=== PATIENT | female | born 1965 | race American Indian/Alaskan Native ===

== ENCOUNTER 2018-02-23 06:01 | Observation (INO) | payer OTHER ==
--- NOTE | 2018-02-17 09:57 | Anesthesia Consultation ---
Anesthesia Consult and Med Hx Date of service: 02/17/18 - Airway Anesthetic Teeth Evaluation: Good (multiple missing molars) ROM Head & Neck: Adequate Mental/Hyoid Distance: Adequate Mallampati Class: Class II Intubation Access Assessment: Probably Good - Pulmonary Exam CTA: Yes - Cardiac Exam Cardiac Exam: RRR - Pre-Operative Health Status ASA Pre-Surgery Classification: ASA3 Proposed Anesthetic Plan: General - Cardiovascular System Hx Hypertension: Yes (HL) - Central Nervous System Hx Psychiatric Problems: No - Gastrointestinal Hx Gastroesophageal Reflux Disease: Yes - Endocrine Hx Non-Insulin Dependent Diabetes: Yes (borderline) - Hematic Hx Anemia: Yes - Other Systems Hx Alcohol Use: Yes (occas) Hx Cancer: No Hx Obesity: Yes - Additional Comments Anesthesia Medical History Comments: glaucoma, OA b/l knees
[2018-02-17 10:07] LABS: Hematocrit 40.9 % (30.3-42.9); Hemoglobin 13.1 gm/dl (10.1-14.3); Mean Corpuscular HGB Conc 32 % (30-34); Mean Corpuscular Volume 76 fl (79-97); Platelet Count 270 K/mm3 (140-440); Red Blood Count 5.39 M/mm3 (3.65-5.03); Red Cell Distribution Width 19.4 % (13.2-15.2)
[2018-02-17 10:09] LABS: Mean Corpuscular Hemoglobin 24 pg (28-32)
[2018-02-17 10:20] LABS: BUN/Creatinine Ratio 22; Blood Urea Nitrogen 11 mg/dL (7-17); Calcium 8.9 mg/dL (8.4-10.2); Hemolysis Index 23
[2018-02-17 10:46] LABS: Anisocytosis 1+; Hypochromasia 1+; Ovalocytes Few; Poikilocytosis 1+; Total Cells Counted 100
[2018-02-17 10:47] LABS: Platelet Estimate Cons
--- NOTE | 2018-02-22 22:38 | History and Physical Report ---
History of Present Illness Date of examination: 02/11/18 Chief complaint: Menorrhagia, Dysmenorrhea and uterine fibroids History of present illness: This is a 52 year-old female who presents with menorrhagia and dysmenorrhea dating back to 2013. Symtpms have been unreposonsive to previous conservative surgical interventiopn. She now desires to proceed with hysterectomy with removal of both her fallopian tubes and ovaries Past History : 1 Premature Births: 1 Living Children: 0 # 1 Delivery type: Comments: iufd [employer] History Operations: Cholecystectomy Breast Biopsy: right benign 2001 Myomectomy( vaginally d/t prolapse thru cervix) excision of colon polyps EGD Abnormal PAP: negative Infection History HIV Risk Eval: no Hx of STD: HSV Active Medications (reviewed today): IBUPROFEN 800 MG ORAL TABLET (IBUPROFEN) 1 po TID (PRN) OXYCODONE-ACETAMINOPHEN 5-325 MG ORAL TABLET (OXYCODONE-ACETAMINOPHEN) 1-2po q6h as needed DORZOLAMIDE HCL 2 % OPHTHALMIC SOLUTION (DORZOLAMIDE HCL) LUMIGAN 0.01 % OPHTHALMIC SOLUTION (BIMATOPROST) PRAVASTATIN SODIUM TABLET (PRAVASTATIN SODIUM TABS) SUCRALFATE TABLET (SUCRALFATE TABS) IRON SUPPLEMENT TABLET (FERROUS SULFATE TABS) T1PO QD FLONASE 50 MCG/ACT NASAL SUSPENSION (FLUTICASONE PROPIONATE) 2 sprays, each nostril x1 qd OMEPRAZOLE TABLET DELAYED RELEASE (OMEPRAZOLE TBEC) BISOPROLOL-HYDROCHLOROTHIAZIDE 10-6.25 MG ORAL TABLET (BISOPROLOL- HYDROCHLOROTHIAZIDE) METFORMIN HCL 500 MG ORAL TABLET (METFORMIN HCL) Current Allergies (reviewed today): * SHELLFISH (Critical) Past Medical History: Reviewed history from 03/30/2017 and no changes required: h/o Anemia Diabetes, Type 2 G E R D Hypertension colon polyps gastric polyp glaucoma chronic sinusitis Hyperlipidemia Past Surgical History: Reviewed history from 08/07/2017 and no changes required: Cholecystectomy Breast Biopsy: right benign 2001 Myomectomy( vaginally d/t prolapse thru cervix) excision of colon polyps EGD Family History Summary: Reviewed history Last on 08/07/2017 and no changes required:02/22/2018 Other family member - Has No Family History of Colon Cancer - Entered On: 2013 Other family member - Has No Family History of Ovarvian Cancer - Entered On: Other family member - Has No Family History of DVT/PE on OCP - Entered On: 05/24 Other family member - Has No Family History of Biliary Tract Cancer - Entered On : 11/20/2016 Other family member - Has No Family History of Brain Cancer - Entered On: 2016 Other family member - Has No Family History of Kidney/Urinary Tract Cancer - Entered On: 11/20/2016 Other family member - Has No Family History of Pancreatic Cancer - Entered On: Other family member - Has No Family History of Stomach Cancer - Entered On: 11/20 Other family member - Has No Family History of Small Bowel Cancer - Entered On: 11/20/2016 Other family member - Has No Family History of Uterine Cancer - Entered On: 11/20 Mother (biol.) - Has Family History Breast Cancer - diagnosed age 58, age 81 - Entered On: 11/04/2017 Sister (full) - Has Family History of Melanoma - Entered On: 11/25/2017 Social History: Reviewed history from 08/07/2017 and no changes required: Patient is single Smoking History: Patient has never smoked. Risk Factors: Smoked Tobacco Use: Never smoker Smokeless Tobacco Use: Never Passive smoke exposure: no Drug use: no HIV high-risk behavior: no Alcohol use: yes Drinks per day: social Exercise: no Seatbelt use: 100 % Mammogram History: Date of Last Mammogram: 08/27/2016 PAP Smear History: Date of Last PAP Smear: 10/28/2017 Previous Tobacco Use: Signed On - 01/11/2018 Smoked Tobacco Use: Never smoker Smokeless Tobacco Use: Never Passive smoke exposure: no Drug use: no HIV high-risk behavior: no Previous Alcohol Use: Signed On - 01/11/2018 Alcohol use: yes Type: occ Exercise: no Seatbelt use: 100 % Colonoscopy History: Date of Last Colonoscopy: 11/06/2016 Mammogram History: Date of Last Mammogram: 08/27/2016 PAP Smear History: Date of Last PAP Smear: 10/28/2017 Review of Systems General Denies fever, chills, sweats, anorexia, fatigue, weakness, malaise, weight loss and sleep disorder. Complains of menorrhagia and abnormal vaginal bleeding. Denies vaginal discharge, incontinence, dysuria, hematuria, urinary frequency, amenorrhea, pelvic pain, genital sores, decreased libido, painful periods, painful sex, urinary urgency, hot flashes, vaginal dryness, vaginal itching and vaginal odor. CV Denies chest pains, palpitations, syncope, dyspnea on exertion, orthopnea, PND and peripheral edema. Resp Denies cough, dyspnea at rest, excessive sputum, hemoptysis, wheezing and pleurisy. GI Denies nausea, vomiting, diarrhea, constipation, change in bowel habits, abdominal pain, melena, hematochezia, jaundice, gas/bloating, indigestion/ heartburn, dysphagia and odynophagia. Endo Denies cold intolerance, heat intolerance, polydipsia, polyphagia, polyuria and unusual weight change. Breast Denies left breast lump, right breast lump, nipple discharge, bloody discharge from nipple, breast pain, abnormal mammogram and breast enlargement. MS Denies back pain, joint pain, joint swelling, muscle cramps, muscle weakness, stiffness, arthritis, sciatica, restless legs, leg pain at night and leg pain with exertion. Derm Denies rash, itching, dryness and suspicious lesions. Neuro Denies paralysis, paresthesias, headache, seizures, tremors, vertigo, transient blindness, frequent falls, frequent headaches and difficulty walking. Psych Denies depression, anxiety, irritability and mood swings. Eyes Denies blurring, diplopia, irritation, discharge, vision loss, eye pain and photophobia. ENT Denies earache, ear discharge, tinnitus, decreased hearing, nasal congestion, nosebleeds, sore throat and hoarseness. Allergy Denies urticaria, allergic rash, hay fever and recurrent infections. Heme Denies abnormal bruising, bleeding and enlarged lymph nodes. Physical Exam Appearance: well developed, well nourished, no acute distress Other Exams Breast exam: no masses or nipple discharge Lungs: no rales, rhonchi, or wheezes Abdomen: soft, non-tender, no masses, obese Skin: no ulcers, xanthomas Extremities: normal alignment, no joint enlargement, crepitus, masses or tenderness; normal tone and strength Genitourinary Exam Vulva: normal, no lesions or discharge Urethral meatus: normal size and location, no lesions or discharge Urethra: no discharge Bladder: no cystocele Vagina: normal appearance, yellow discharge, lesions. No evidence of cystocele or rectocele. errythema Cervix: normal appearance, no lesions, no discharge Uterus: unable to palpate Adnexa: unable to palpate due to obesity Impression & Recommendations: Problem # 1: Excessive and frequent menstruation with regular cycle (ICD-626.2 ) (UKC40-H14.0) Diagnosis explained to patient . Questions answered. Discussed with patient various medical and surgical therapies common for treatment: Hormonal/medical therapy,endometrial ablation or hysterectomy. She desires to proceed with hysterectomy with removal of both fallopian tubes and ovaries Consent reviewed and signed . Possible laparoscopy or laparotomy explained to patient. The risks and alternatives for this surgery were reviewed with the patient. She was informed of possible bleeding, infection, injury to bowel, bladder, ureters or other adjacent organs. She was informed she will not be able to get after her uterus has been removed. She's aware se will immediately be placed into menopause after her ovaries have been removed. Discussed use of hormone therapy. Risks reviewed with patient but not limited to :CVA, AR, DVT, PE, Breast cancer, liver problems. Patient counseled that she should use the lowest effective dose of HRT/ERT for the shortest period of time Other options for offered, encouraged to exercise, increase water intake, decrease Na+ and carbohydrate intake. The patient was instructed/informed the following: The normal length of hospital stay for this procedure. Nothing to eat or drink after midnight the evening prior to surgery. Clear liquids the day before surgery. Fleets enema the day prior to surgery. Pre-op instruction sheets given. Wound care instructions given. Infection precautions reviewed, patient to call for any signs or symptoms of infection. The usual discomforts associated with this procedure were detailed. Proper use of pain medicines was reviewed. Patient was given ample opportunity to have all her questions answered before signing informed consent. Problem # 2: Fibroids of uterus, Submucosal (ICD-218.0) (YNC21-L59.0) Her updated medication list for this problem includes: Ibuprofen 800 Mg Oral Tablet (Ibuprofen) ..... 1 po tid (prn) Oxycodone-acetaminophen 5-325 Mg Oral Tablet (Oxycodone-acetaminophen) ..... 1-2po q6h as needed Orders: Ofc Vst Est 16050 (CPT-15460) Medications Added to Medication List This Visit: 1) Ibuprofen 800 Mg Oral Tablet (Ibuprofen) .... 1 po tid (prn) 2) Oxycodone-acetaminophen 5-325 Mg Oral Tablet (Oxycodone-acetaminophen) .... 1-2po q6h as needed 3) Dorzolamide Hcl 2 % Ophthalmic Solution (Dorzolamide hcl) 4) Lumigan 0.01 % Ophthalmic Solution (Bimatoprost) Prescriptions: IBUPROFEN 800 MG ORAL TABLET (IBUPROFEN) 1 po TID (PRN) #30 x 0 Entered and Authorized by: Jojo Brown MD Method used: Print then Give to Patient RxID: [id number] OXYCODONE-ACETAMINOPHEN 5-325 MG ORAL TABLET (OXYCODONE-ACETAMINOPHEN) 1-2po q6h as needed #30 Tablet x 0 Entered and Authorized by: Jojo Brown MD Method used: Print then Give to Patient RxID: [id number] Medications and Allergies Allergies Allergy/AdvReac Type Severity Reaction Status Date / Time shellfish derived Allergy Angioedema Verified 02/16/18 12:02 Home Medications Medication Instructions Recorded Confirmed Last Taken Type Bisoprolol/Hydrochlorothiazide 1 each PO DAILY 02/17/18 02/17/18 Unknown History [Bisoprolol-Hctz 10-6.25 mg Tab] Dorzolamide HCl/Timolol Maleat 1 drop OU DAILY 02/17/18 02/17/18 Unknown History [Dorzolamide-Timolol Eye Drops] Latanoprost 0.005% 1 drop OU DAILY 02/17/18 02/17/18 Unknown History Metformin HCl 500 mg PO BID 02/17/18 02/17/18 Unknown History Omeprazole 20 mg PO DAILY 02/17/18 02/17/18 Unknown History Pravastatin [Pravachol] 20 mg PO QHS 02/17/18 02/17/18 Unknown History Sucralfate [Carafate] 1 gm PO BID 02/17/18 02/17/18 Unknown History Active Meds: Active Medications Cefazolin Sodium (Ancef/Sterile Water 2 Gm/20 Ml) 2 gm in 20 mls @ 80 mls/hr IV PREOP NR; Protocol Stop: 02/23/18 23:45 Exam Vital Signs Temp Pulse Resp BP 98 F 80 18 148/90 02/17/18 09:30 02/17/18 09:30 02/17/18 09:30 02/17/18 09:30 Results - Labs 02/17/18 09:30 02/17/18 09:30 Assessment and Plan - Patient Problems (1) Menorrhagia Status: Acute (2) Dysmenorrhea Status: Acute (3) Uterine fibroid Status: Acute
[~2018-02-23 06:01] MED LIST: ANCEF/STERILE WATER 2 GM/20 ML 2 GM/20 ML SYRINGE IV NR
[2018-02-23] MEDS ORDERED: NACL BACTERIOSTATIC INFILTRATI ONE (06:27)
[2018-02-23] MEDS ORDERED: VERSED IV PRN (07:05)
[2018-02-23] MEDS ORDERED: SUBLIMAZE IV NR (07:06)
[2018-02-23] MEDS ORDERED: MARCAINE 0.5% INFILTRATI NR (07:06)
[2018-02-23] MEDS ORDERED: LACTATED RINGERS 1,000 ML ONE ×2 (07:07→10:03)
[2018-02-23] MEDS ORDERED: DECADRON ONE ×2 (07:22→08:58)
[2018-02-23] MEDS ORDERED: MARCAINE 0.5% INFILTRATI ONE (07:22)
[2018-02-23] MEDS ORDERED: CLONIDINE 1,000 MCG/10 ML VIAL EP ONE (07:23)
[2018-02-23] MEDS ORDERED: NEOSPORIN GU IR ONE ×2 (07:38→10:05)
[2018-02-23] MEDS ORDERED: DILAUDID ONE (07:39)
[2018-02-23] MEDS ORDERED: SUBLIMAZE ONE (07:39)
[2018-02-23] MEDS ORDERED: DIPRIVAN 10 MG/ML IV ONE (07:40)
[2018-02-23] MEDS ORDERED: ZEMURON IV ONE (07:41)
[2018-02-23] MEDS ORDERED: XYLOCAINE MPF 2% ONE (07:41)
[2018-02-23] MEDS ORDERED: NEURONTIN PO NR (08:00)
[2018-02-23] MEDS ORDERED: LACTATED RINGERS 1,000 ML IV SCH (08:00)
[2018-02-23] MEDS ORDERED: ePHEDrine 50 MG/5 ML-0.9% NACL IV ONE (08:46)
[2018-02-23] MEDS ORDERED: NACL 0.9% 1000 ML 1,000 ML ONE (10:03)
[2018-02-23] MEDS ORDERED: NACL 0.9% IR ONE (10:05)
[2018-02-23] MEDS ORDERED: ZOFRAN ONE (10:19)
[2018-02-23] MEDS ORDERED: ROBINUL ONE ×2 (10:20)
[2018-02-23] MEDS ORDERED: BLOXIVERZ ONE (10:22)
[2018-02-23] MEDS ORDERED: NEO SYNEPHRINE/NS Syringe(OR USE) IV ONE (10:30)
[2018-02-23] MEDS ORDERED: TORADOL IV NR ×2 (11:15→11:16)
[2018-02-23] MEDS ORDERED: DILAUDID IV PRN (11:33)
--- NOTE | 2018-02-23 11:40 | Post Operative Note ---
Date of procedure: 02/23/18 Pre-op diagnosis: Menorrhagia, dysmenorrhea, fibroids Post-op diagnosis: same Procedure: RATH/BSO Anesthesia: GETA Surgeon: LIV DRIVER Certified Peer Specialist: NIKKI GARZA Estimated blood loss: minimal Specimen disposition: to lab Condition: stable Disposition: PACU
--- NOTE | 2018-02-23 11:44 | Event Note ---
Date: 02/23/18 s/w re: NSAID allergy- patient states she does not have any itching or difficulty breathing when she takes Ibuprofen, she only experiences GI upset, will give a trial of Toradol 15mg IV to observe for any reaction while in PACU. Patient voiced understanding and agrees with plan of care for pain management.
[2018-02-23] MEDS ORDERED: MORPHINE IV PRN (14:26)
[2018-02-23] MEDS ORDERED: PERCOCET 5/325 PO PRN (14:26)
[2018-02-23] MEDS ORDERED: REGLAN PO PRN (14:26)
[2018-02-23] MEDS ORDERED: D50W (25GM) Syringe IV PRN (14:26)
[2018-02-23] MEDS ORDERED: ZOFRAN IV PRN (14:26)
[2018-02-23] MEDS ORDERED: NACL 0.9% 1000 ML 1,000 ML IV SCH (14:26)
[2018-02-23] MEDS ORDERED: HumuLIN R SUB-Q SCH (14:26)
[2018-02-23] MEDS ORDERED: TYLENOL PR PRN (14:26)
[2018-02-23] MEDS ORDERED: D5LR 1,000 ML IV ONE (15:47)
[2018-02-23] MEDS: ANCEF/NS 1 GM/50 ML 1 GM/50 ML BAG IV SCH (17:59)
[2018-02-23] MEDS ORDERED: LATANOPROST 0.005% OU SCH (18:00)
[2018-02-23] MEDS: TYLENOL PO SCH (18:04)
[2018-02-23] MEDS: NEURONTIN PO SCH (21:55)
[2018-02-23] MEDS: PEPCID IV SCH (21:56)
--- NOTE | 2018-02-23 23:31 | Operative Report ---
Operative Report Operative Report: Date: 02/23/2018 Preoperative diagnosis: 1. Menorrhagia 2. Dysmenorrhea 3. Uterine fibroid Postoperative diagnosis: 1. Menorrhagia 2. Dysmenorrhea 3. Uterine fibroid Procedure: 1. Robotic-assisted laparoscopic total hysterectomy with bilateral salpingo-oophorectomy 2. Lysis of pelvic adhesions Surgeon: Jojo Brown MD Tack Cutter: Barbie Jimenes M.D. Anesthesiologist: [] Anesthesia: General endotracheal anesthesia EBL: Approximately less than 100 mL Findings: Exam under anesthesia revealed the uterus to be approximately 14 weeks fixed. Uterus sounded to 9 cm. Grossly normal tubes and ovaries. Patient had a small amount of omentum adhered to the anterior abdominal wall. Procedure: Patient was taken to the OR and placed in the supine position. General anesthesia was induced and an oral gastric tube was placed. Her neck and head were placed on foam support. Foam eye protection with goggles were secured in place. Then foam face protection was placed and secured. Foam shoulder pads were then positioned on her shoulders for Trendelenburg positioning. She was then placed in dorsolithotomy position. Exam under anesthesia as above. The abdomen and vagina were then prepped and draped in the usual sterile fashion. Timeout was performed. A Sanchez catheter was inserted into the bladder with drainage of clear yellow urine. The operative speculum was introduced into the vagina and the anterior lip of the cervix was grasped with single-toothed tenaculum. The uterus was sounded to [] cm. The cervix was progressively dilated to allow the large V care uterine manipulator. The bulb of the manipulator was inflated and the speculum and tenaculum were removed. The cup of the manipulator was placed around the cervix and the blue occluder of the manipulator was properly positioned in the vagina. A laparotomy sponge that was saturated with a solution of polymyxin and saline was placed in the vagina to ensure pneumoperitoneum. Sterile gloves were placed and attention was turned to the abdomen. A 10 mm vertical supraumbilical incision was made approximately 10 cm superior to the elevated fundus of the uterus. A 12 mm trocar with the laparoscope and camera attached was introduced through this incision under direct visualization. The abdomen was insufflated. No obvious bowel, bladder, ureteral, or major vascular injury was noted. The patient was then placed in steep Trendelenburg position and the following trochars were placed under direct visualization: 8 mm robotic trochars were placed through incisions made in the bilateral midclavicular lower abdominal region approximately 10 cm lateral and approximately 2 cm below the midline incision, and a 5 mm trocar was placed through an incision made in the right lower lateral pelvis approximately 2 cm superior to the iliac crest. The 10 mm laparoscope was then replaced by a 5 mm laparoscope that was placed through the 5 millimeter lateral trocar. The 12 mm trocar was then removed in the Michael Silva fascial closure device was placed through the incision and a 0 Vicryl was placed through the fascia. Once the suture was secured the 12 mm trocar was reintroduced. Once the trochars were in the appropriate positions, the da Pee robot system was engaged. The EndoShears and bipolar device was placed through the 8 mm trochars and positioned then attention was turned to the console. The omentum that was adhered to the anterior abdominal wall was released. The uterus was elevated and bilateral salpingectomy was performed. Each tube was removed through the 5 mm trocar and sent to pathology in separate containers. Then the utero-ovarian ligaments were clamped. cauterized and incised bilaterally using 30 W of energy. Then the round ligaments were clamped , cauterized and incised bilaterally. The anterior leaf of the broad ligament was elevated and careful blunt and sharp dissection the bladder flap was created and dissected away from the lower uterine segment and cervix. The posterior leaf of the broad ligament was dissected away from the uterine vessels. The cup of the uterine manipulator was palpated both anteriorly and posteriorly. Course of the ureters was visualized and was confirmed to be away from the operative field. The uterine vessels were then clamped and cauterized bilaterally. Blanching of the uterus was then noted. Attention was again turned to the anterior lower uterine segment and the bladder was confirmed to be away from the operative field. Then attention was turned again to the posterior where the cup of the manipulator was palpated and a colpotomy was performed down to the cup. The incision was extended in the lateral position the uterine vessels that were again clamped and cauterized and incised. Continuing along the cup of the manipulator in a circumferential manner the colpotomy was completed. The uterus and cervix were then removed through the vaginal incision. The pelvis was irrigated with warm normal saline. A moist laparotomy sponge was placed in the vagina to maintain pneumoperitoneum. Then attention was turned to the right adnexa, the ovary and tube were elevated and the course of the ureter was visualized. Then the right tube and ovary were released and removed through the vagina. The same procedure was performed in the left adnexa. The laparotomy sponge was placed again into the vagina to maintain the pneumoperitoneum. The vagina cuff was reapproximated using V LOC 180 suture in a simple running stitch. Then a J stitch was performed to secure the suture. Again the pelvis was copiously irrigated with polymixin in warm normal saline. The laparotomy sponge was removed from the vagina. No bowel, bladder, ureteral or major vascular injury was noted. Once hemostasis was noted, Usman was applied to the operative field to ensure hemostasis. Then Interceed was applied to the operative field to decrease formation of adhesions. Again hemostasis was noted. Then the instruments were removed, the robot was disengaged. The 12 mm trocar was removed and the fascia was ligated with the 0 Vicryl suture that was placed at the beginning of the procedure. The patient was taken out of Trendelenburg position, the abdomen was desufflated, the remaining trochars were removed. Incisions were reapproximated using 4-0 Vicryl in a subcuticular manner. Incisions were infused with half percent Marcaine without epinephrine and Surgiseal was placed over the incisions. The vagina was then inspected, no bleeding was noted and clear yellow urine was draining into the Sanchez bag from the bladder at the end of the procedure. Patient was taken to recovery room in stable condition.
[2018-02-24] MEDS: TYLENOL PO SCH (02:00)
[2018-02-24] MEDS: ANCEF/NS 1 GM/50 ML 1 GM/50 ML BAG IV SCH (02:00)
[2018-02-24 06:42] LABS: Hematocrit 38.7 % (30.3-42.9); Hemoglobin 12.2 gm/dl (10.1-14.3)
--- NOTE | 2018-02-24 08:56 | Discharge Summary ---
Providers - Providers Date of Admission: 02/23/18 11:16 Date of discharge: 02/24/18 Attending physician: LIV DRIVER Hospitalization Condition: Good Procedures: RATH/BSO Hospital course: Unremarkable Disposition: DC-01 TO HOME OR SELFCARE - Discharge Diagnoses (1) History of robot-assisted laparoscopic hysterectomy Status: Acute (2) S/P bilateral salpingo-oophorectomy Status: Acute (3) Menorrhagia Status: Resolved (4) Dysmenorrhea Status: Resolved (5) Uterine fibroid Status: Resolved Core Measure Documentation - Palliative Care Palliative Care/ Comfort Measures: Not Applicable - Core Measures Any of the following diagnoses?: none Exam - Constitutional Vitals: Temp Pulse Resp BP Pulse Ox 98.7 F 69 18 114/79 96 02/24/18 04:00 02/24/18 04:00 02/24/18 04:00 02/24/18 04:00 02/23/18 17:54 General appearance: Present: no acute distress - Neck Neck: Present: supple - Respiratory Respiratory effort: normal Respiratory: bilateral: CTA - Cardiovascular Rhythm: regular - Extremities Extremities: no ischemia, No edema - Abdominal General gastrointestinal: Present: soft, non-tender, non-distended, normal bowel sounds - Integumentary Integumentary: Present: clear, warm, dry (Incisions w/o s/s infection or defects , intact) - Psychiatric Psychiatric: appropriate mood/affect Plan Activity: other (NO sex, no driving. Ambulate ~1mile on your property a day, use your incentive spirometer every hour while awake) Weight Bearing Status: Full Weight Bearing Diet: low fat, low cholesterol (Eat small meals frequently, drink 100oz water a day, ), low salt, diabetic Wound: open to air, keep clean and dry Special Instructions: no heavy lifting (>25#) Follow up with: IVETTE KURTZ [Other] - 7 Days LIV DRIVER MD [Staff Physician] - (As scheduled)
[2018-02-24] MEDS: NEURONTIN PO SCH (09:42)
[2018-02-24] MEDS: PEPCID IV SCH (09:42)
[2018-02-24] MEDS ORDERED: LATANOPROST 0.005% OU SCH (10:00)
[2018-02-24] MEDS ORDERED: BISOPROLOL PO SCH (10:00)
[2018-02-24] MEDS ORDERED: NON-FORMULARY (Dorzolamide Hcl/Timolol Maleat [Dorzolamide-Timolol Eye Drops] 1 DROP) OU SCH (10:00)
[2018-02-24] MEDS ORDERED: HYDROCHLOROTHIAZIDE PO SCH (10:00)
[2018-02-24 13:47] VITALS: BP 120/87
[2018-02-24] MEDS ORDERED: ZIAC 10-6.25 PO SCH (16:00)
== END 2018-02-24 14:30 | disposition home or self-care (01) ==
LOC: OR 06:01 → OB 11:16
PROVIDERS: ADMIT Obstetrics & Gynecology; ATTEND Obstetrics & Gynecology
DX: D25.9 Leiomyoma of uterus, unspecified (principal); N94.6 Dysmenorrhea, unspecified; D64.9 Anemia, unspecified; E11.39 Type 2 diabetes mellitus with other diabetic ophthalmic complication; H40.9 Unspecified glaucoma; I10 Essential (primary) hypertension; K21.9 Gastro-esophageal reflux disease without esophagitis; E78.5 Hyperlipidemia, unspecified
CPT/HCPCS: 36415; 58554; 64450; 80048; 81025; 82962; 85007; 85014; 85018; 85025; 86850; 86900; 86901; 88307; 96365; 96372; 96375; 96376; A4217; C1765; G0378; J0690; J0735; J1100; J1170; J1885; J2250; J2370; J2405; J2704; J2710; J3010; J7030; J7120; J7121; S2900; 88305; J1815